=== PATIENT | female | born 1960 | race Caucasian/White ===

== ENCOUNTER 2020-02-24 10:22 | Emergency (ER) | payer OTHER ==
[~2020-02-24] VITALS: Ht 172.7 cm; Wt 90.7 kg
[2020-02-24] MEDS ORDERED: ATACAND HCT 321 EAC1 (10:33)
== END 2020-02-24 12:27 | disposition home or self-care (01) ==
LOC: ER 10:22
DX: H57.12 Ocular pain, left eye (principal)

== ENCOUNTER 2023-04-08 08:56 | Outpatient (CLI) | payer OTHER ==
[~2023-04-08 08:56] MED LIST: ATACAND HCT 321 EAC1
[2023-04-08 09:49] LABS: HEMATOCRIT 28.7 % (36.0-45.00); MEAN CELL VOLUME 73.4 fL (80.00-100.00); MEAN CORPUSCULAR HGB CONC 31.9 g/dl (32.0-36.0); PLATELET COUNT 262 K/uL (150-450); RED BLOOD COUNT 3.92 M/uL (4.00-6.00)
[2023-04-08 09:51] LABS: MEAN CORPUSCULAR HEMOGLOBIN 23.4 pg (27.00-32.0); RED CELL DISTRIBUTION WIDTH 17.1 % (11.5-14.5)
[2023-04-08 09:52] LABS: HEMOGLOBIN 9.2 g/dL (12.0-15.00)
[2023-04-08] MEDS ORDERED: NORVASC2.5 MG PO (13:52)
[2023-04-08] MEDS ORDERED: MILLIPRED5 MG PO (13:52)
[2023-04-08] MEDS ORDERED: METFORMIN HCL500 MG (13:53)
[2023-04-08] MEDS ORDERED: TREXALL5 MG (13:53)
== END 2023-04-08 08:58 | disposition home or self-care (01) ==
LOC: LAB 08:56
PROVIDERS: ATTEND Internal Medicine Pulmonary Disease
DX: D64.9 Anemia, unspecified (principal)

== ENCOUNTER 2023-04-14 07:14 | Inpatient (IN) | payer OTHER ==
[~2023-04-14] VITALS: Ht 172.7 cm; Wt 87.5 kg
[~2023-04-14 07:14] MED LIST changes: +METFORMIN HCL500 MG; +MILLIPRED5 MG PO; +NORVASC2.5 MG PO; +TREXALL5 MG
[2023-04-14] MEDS ORDERED: INSULIN LISPRO 1,000 UNIT/10 ML UNITS SUBCUTANEO PRN (07:45)
[2023-04-14] MEDS ORDERED: RINGERS SOLUTION,LACTATED 1,000 ML IV SCH (07:45)
[2023-04-14] MEDS ORDERED: FUROsemide 20 MG/2 ML VIAL IV SCH (07:45)
[2023-04-14] MEDS ORDERED: DEXTROSE 50 % IN WATER 0.5 G/ML DISP.SYRIN IV PRN (07:45)
[2023-04-14] MEDS ORDERED: FAMOTIDINE/PF 20 MG in 0.9 % SODIUM CHLORIDE 8 ML IV PUSH SCH (09:00)
[2023-04-14] MEDS ORDERED: Cyanocobalamin/Mecobalamin 1 TAB.SL SL SCH (09:00)
[2023-04-14] MEDS ORDERED: CANDESARTAN CILEXETIL 32 MG TABLET PO SCH (09:00)
[2023-04-14] MEDS ORDERED: HYDROCHLOROTHIAZIDE 12.5 MG CAPSULE PO SCH (09:00)
[2023-04-14] MEDS ORDERED: AMLODIPINE BESYLATE 2.5 MG TABLET PO SCH ×2 (09:00→21:00)
[2023-04-14] MEDS ORDERED: PREDNISONE 5 MG TABLET PO SCH (09:00)
[2023-04-14] MEDS ORDERED: SOD FERRIC GLUC COMPLX/SUCROSE 62.5 MG in 0.9 % SODIUM CHLORIDE 50 ML IV SCH (09:00)
[2023-04-15 02:46] LABS: HEMATOCRIT 36.1 % (36.0-45.00); MEAN CELL VOLUME 78.4 fL (80.00-100.00); MEAN CORPUSCULAR HGB CONC 33.1 g/dl (32.0-36.0); PLATELET COUNT 223 K/uL (150-450); RED BLOOD COUNT 4.61 M/uL (4.00-6.00); RED CELL DISTRIBUTION WIDTH 20.6 % (11.5-14.5)
[2023-04-15] MEDS ORDERED: FAMOTIDINE/PF 20 MG/2 ML VIAL ONE (15:35)
[2023-04-15] MEDS ORDERED: POLYETHYLENE GLYCOL 3350 17 GM BLIST.PACK PO SCH (16:00)
[2023-04-15] MEDS ORDERED: BISACODYL 10 MG/SUPP.RECT SUPP.RECT RECTAL SCH (21:00)
[2023-04-16] MEDS ORDERED: HYDROCORTISONE SODIUM SUCC/PF 100 MG VIAL IV ONE (06:00)
[2023-04-16] MEDS ORDERED: HYDROCORTISONE SODIUM SUCC/PF 100 MG VIAL ONE (13:14)
[2023-04-16] MEDS ORDERED: ENALAPRILAT DIHYDRATE 1.25 MG/ML VIAL IV PRN (21:00)
[2023-04-16] MEDS ORDERED: BUPIVACAINE HCL 30 ML VIAL IJ ONE (21:15)
[2023-04-16] MEDS ORDERED: METRONIDAZOLE/SODIUM CHLORIDE 500 MG/100 ML PIGGYBACK IV ONE (21:15)
[2023-04-16] MEDS ORDERED: LIDOCAINE HCL 1%/Epi 20ML VIAL IJ ONE (21:15)
[2023-04-16] MEDS ORDERED: RINGERS SOLUTION,LACTATED 1,000 ML IV SCH (21:30)
[2023-04-16] MEDS ORDERED: ONDANSETRON HCL 2 MG/ML VIAL IV PRN (21:30)
[2023-04-16] MEDS ORDERED: OxyCODONE HCL 5 MG TABLET (ROXICODONE) PO PRN (21:30)
[2023-04-16] MEDS ORDERED: MORPHINE SULFATE 4 MG/ML CARTRIDGE IV PRN (21:30)
[2023-04-16 23:17] LABS: HEMATOCRIT 41.5 % (36.0-45.00); HEMOGLOBIN 13.4 g/dL (12.0-15.00); MEAN CELL VOLUME 79.7 fL (80.00-100.00); MEAN CORPUSCULAR HEMOGLOBIN 25.8 pg (27.00-32.0); MEAN CORPUSCULAR HGB CONC 32.4 g/dl (32.0-36.0); PLATELET COUNT 280 K/uL (150-450); RED CELL DISTRIBUTION WIDTH 20.9 % (11.5-14.5)
[2023-04-17] MEDS ORDERED: METOCLOPRAMIDE HCL 5 MG/ML VIAL IV SCH (01:00)
[2023-04-17] MEDS ORDERED: GABAPENTIN 300 MG CAPSULE PO SCH (01:00)
[2023-04-17] MEDS ORDERED: ACETAMINOPHEN 500 MG GEL..CAP PO SCH (02:00)
[2023-04-17] MEDS ORDERED: CELECOXIB 200 MG CAPSULE PO SCH (05:00)
[2023-04-17 08:03] LABS: HEMATOCRIT 38.5 % (36.0-45.00); HEMOGLOBIN 12.6 g/dL (12.0-15.00); MEAN CELL VOLUME 78.1 fL (80.00-100.00); MEAN CORPUSCULAR HEMOGLOBIN 25.6 pg (27.00-32.0); MEAN CORPUSCULAR HGB CONC 32.8 g/dl (32.0-36.0); PLATELET COUNT 222 K/uL (150-450); RED BLOOD COUNT 4.93 M/uL (4.00-6.00); RED CELL DISTRIBUTION WIDTH 21.2 % (11.5-14.5)
[2023-04-17 08:32] LABS: ALBUMIN 3.2 gm/dL (3.4-5.0); CALCIUM 9.2 mg/dL (8.5-10.1); CREATININE SERUM 0.68 mg/dL (0.55-1.02); GFR 87.39; PHOSPHOROUS 3.3 mg/dL (2.5-4.9); POTASSIUM 4.22 mEq/L (3.5-5.1)
[2023-04-17] MEDS ORDERED: LACTOBACILLUS ACIDOPHILUS 1 CAP CAP PO SCH (09:00)
[2023-04-17] MEDS ORDERED: HYOSCYAMINE SULFATE 0.125 MG TAB.SUBL SL SCH (09:00)
[2023-04-17] MEDS ORDERED: LACTULOSE 20 G/30 ML BLIST.PACK PO SCH (09:00)
[2023-04-17] MEDS ORDERED: FAMOTIDINE/PF 20 MG/2 ML VIAL IV PUSH SCH (09:00)
[2023-04-17] MEDS ORDERED: SIMETHICONE 125 MG CAPSULE PO SCH (09:00)
[2023-04-17] MEDS ORDERED: HYDROCORTISONE SODIUM SUCC/PF 100 MG VIAL IV SCH ×2 (13:00)
[2023-04-17] MEDS ORDERED: LEVALBUTEROL HCL 0.63 MG/3 ML SOLUTION IH SCH ×2 (13:00)
[2023-04-17] MEDS ORDERED: POLYETHYLENE GLYCOL 3350 17 GM BLIST.PACK PO SCH (17:00)
[2023-04-17] MEDS ORDERED: ENOXAPARIN SODIUM 40 MG/0.4 ML SYRINGE SUBCUTANEO SCH (17:00)
[2023-04-18 05:26] LABS: HEMATOCRIT 33.5 % (36.0-45.00); MEAN CELL VOLUME 78.7 fL (80.00-100.00); MEAN CORPUSCULAR HEMOGLOBIN 25.8 pg (27.00-32.0); MEAN CORPUSCULAR HGB CONC 32.8 g/dl (32.0-36.0); PLATELET COUNT 189 K/uL (150-450); RED BLOOD COUNT 4.26 M/uL (4.00-6.00); RED CELL DISTRIBUTION WIDTH 21.6 % (11.5-14.5)
[2023-04-18 05:40] LABS: CALCIUM 8.8 mg/dL (8.5-10.1); CREATININE SERUM 0.81 mg/dL (0.55-1.02); GFR 71.41; MAGNESIUM 2.3 mg/dL (1.8-2.4); PHOSPHOROUS 3.2 mg/dL (2.5-4.9); POTASSIUM 3.68 mEq/L (3.5-5.1)
[2023-04-18] MEDS ORDERED: ENOXAPARIN SODIUM 40 MG/0.4 ML SYRINGE SUBCUTANEO SCH (09:00)
[2023-04-18] MEDS ORDERED: HYDROCORTISONE SODIUM SUCC/PF 100 MG VIAL IV SCH (21:00)
[2023-04-19] MEDS ORDERED: PERCOCET 5-3251 EACH PO (09:30)
== END 2023-04-19 11:22 | disposition home or self-care (01) | DRG 331 ==
LOC: ER 07:14 → SURH 08:33
PROVIDERS: Colon & Rectal Surgery; ADMIT Internal Medicine Geriatric Medicine; ATTEND Internal Medicine Geriatric Medicine
PROC: 30233N1 Transfusion of Nonautologous Red Blood Cells into Peripheral Vein, Percutaneous Approach (ICD-10-PCS; 2023-04-14)
PROC: 07BB4ZZ Excision of Mesenteric Lymphatic, Percutaneous Endoscopic Approach (ICD-10-PCS; 2023-04-16)
PROC: 0DTF4ZZ Resection of Right Large Intestine, Percutaneous Endoscopic Approach (ICD-10-PCS; principal; 2023-04-16 11:15)
DX: C18.0 Malignant neoplasm of cecum (principal); D63.0 Anemia in neoplastic disease; R59.0 Localized enlarged lymph nodes; E11.9 Type 2 diabetes mellitus without complications; Z79.4 Long term (current) use of insulin; I10 Essential (primary) hypertension; M06.9 Rheumatoid arthritis, unspecified

== ENCOUNTER 2023-04-20 16:15 | Inpatient (IN) | payer OTHER ==
[~2023-04-20] VITALS: Ht 172.7 cm; Wt 0.5 kg
[~2023-04-20 16:15] MED LIST changes: +PERCOCET 5-3251 EACH PO
--- NOTE | 2023-04-20 17:01 | NUR ---
PACIENTE ALERTA Y ORIENTADA X3. SE ENCUENTRA ACOMPANADA AL MOMENTO. PACIENTE REFIERE QUE SALIO DE JAYLEN EL SARA DE RAMAN 04/19/2023 POR OPERACION DEL COLON Y QUE EL SARA DE HOY JASSO PRESENTADO DIARREAS X8 Y VOMITOS X1. SE ESTIMAN SIGNOS VITALES Y SE UBICA.
[2023-04-20] MEDS ORDERED: 0.9 % SODIUM CHLORIDE 1,000 ML IV SCH ×2 (20:00→22:45)
[2023-04-20] MEDS ORDERED: ONDANSETRON HCL 2 MG/ML VIAL IV ONE (20:00)
[2023-04-20 20:20] LABS: HEMATOCRIT 39.9 % (36.0-45.00); MEAN CELL VOLUME 80.1 fL (80.00-100.00); MEAN CORPUSCULAR HGB CONC 32.5 g/dl (32.0-36.0); PLATELET COUNT 257 K/uL (150-450); RED BLOOD COUNT 4.99 M/uL (4.00-6.00); RED CELL DISTRIBUTION WIDTH 22.1 % (11.5-14.5)
--- NOTE | 2023-04-20 20:26 | NUR ---
SE EDUCA A PTE SOBRE PROCEDIMIENTO MEDICO A SEGUIR, PTE REFIERE ENTENDER, SE REALIZA CANALIZACION BAJO MEDIDAS ASEPTICAS, COLECCION DE MUESTRAS Y ADMINISTRACION DE MEDICAMENTOS BLANE ORDEN MEDICA. PTE EN ESPERA DE CT.
[2023-04-20 20:38] LABS: ALBUMIN 3.3 gm/dL (3.4-5.0); BILIRUBIN TOTAL 0.68 mg/dL (0.3-1.2); CALCIUM 10.3 mg/dL (8.5-10.1); CREATININE SERUM 0.84 mg/dL (0.55-1.02); GFR 68.48; GLOBULINA 4.8 G/DL (2.4-3.5); POTASSIUM 3.48 mEq/L (3.5-5.1); TOTAL PROTEIN 8.1 gm/dL (6.4-8.2)
[2023-04-20] MEDS ORDERED: FAMOTIDINE/PF 20 MG in 0.9 % SODIUM CHLORIDE 8 ML IV PUSH SCH (22:47)
[2023-04-20] MEDS ORDERED: INSULIN LISPRO 1,000 UNIT/10 ML UNITS SUBCUTANEO PRN (23:00)
[2023-04-20] MEDS ORDERED: ENALAPRILAT DIHYDRATE 1.25 MG/ML VIAL IV PRN (23:00)
[2023-04-20] MEDS ORDERED: ACETAMINOPHEN 500 MG GEL..CAP PO PRN (23:00)
[2023-04-20] MEDS ORDERED: DEXTROSE 50 % IN WATER 0.5 G/ML DISP.SYRIN IV PRN (23:00)
[2023-04-20] MEDS ORDERED: ONDANSETRON HCL 4 MG in 0.9 % SODIUM CHLORIDE 50 ML IV PRN (23:00)
[2023-04-20] MEDS ORDERED: MEPERIDINE HCL/PF 25 MG/ML VIAL IM PRN (23:00)
[2023-04-21] MEDS ORDERED: PIPERACILLIN/TAZOBACTAM SODIUM 3.375 GM in DEXTROSE 5 % IN WATER 100 ML IV SCH
[2023-04-21 02:31] LABS: INR 2.03; PARTIAL THROMBOPLASTIN TIME 34.5 SECONDS (22.0-34.0)
[2023-04-21 02:33] LABS: PROTHROMBIN TIME 20.2 SECONDS (9.0-11.5)
[2023-04-21] MEDS ORDERED: PHENOL 177 ML BOTTLE MM SCH (13:00)
[2023-04-21] MEDS ORDERED: FAMOTIDINE/PF 20 MG/2 ML VIAL ONE (16:05)
[2023-04-21 20:38] LABS: CALCIUM 8.8 mg/dL (8.5-10.1); CHOL HDL RATIO 3.5 (0-5.0); CREATININE SERUM 0.72 mg/dL (0.55-1.02); GFR 81.81; POTASSIUM 3.53 mEq/L (3.5-5.1)
[2023-04-21] MEDS ORDERED: FAMOTIDINE/PF 20 MG in 0.9 % SODIUM CHLORIDE 8 ML IV PUSH SCH (21:00)
[2023-04-21 21:24] LABS: URINE APPEARANCE Clear; URINE BILIRRUBIN Negative (NEGATIVE); URINE BLOOD Negative; URINE COLOR Yellow; URINE GLUCOSE Negative (NEGATIVE); URINE LEUKOCYTE Negative; URINE NITRATE Negative; URINE PROTEIN Trace (NEGATIVE); URINE UROBILINOGEN 0.2 E.U./dl
[2023-04-21 21:28] LABS: URINE BACTERIA 6.2 uL (0.0-1933); URINE EPITHELIAL CELLS 4.9 uL (0.0-38.8); URINE RBC 3.5 uL (0.0-20.8); URINE WBC 5.5 uL (0.0-23.2)
[2023-04-22 06:47] LABS: ob POSITIVE (NEGATIVE)
[2023-04-22] MEDS ORDERED: DEXTROSE 50 % IN WATER 0.5 G/ML DISP.SYRIN IV PRN (10:45)
[2023-04-22] MEDS ORDERED: INSULIN LISPRO 1,000 UNIT/10 ML UNITS SUBCUTANEO PRN (10:45)
[2023-04-22] MEDS ORDERED: ENALAPRILAT DIHYDRATE 1.25 MG/ML VIAL IV PRN (10:45)
[2023-04-22] MEDS ORDERED: HYDROCORTISONE SODIUM SUCC/PF 100 MG VIAL IV STA (10:49)
[2023-04-22 13:43] LABS: FECAL LEUKOCYTES POSITIVE (NEGATIVE)
[2023-04-22] MEDS ORDERED: FAMOTIDINE/PF 20 MG/2 ML VIAL ONE (15:52)
[2023-04-22] MEDS ORDERED: AA 4.25%/CAL/LYTES/DEXT 5% 1,000 ML PERIFERAL SCH (17:00)
[2023-04-22] MEDS ORDERED: HYDROCORTISONE SODIUM SUCC/PF 100 MG VIAL IV SCH (21:00)
[2023-04-23 06:58] LABS: HEMATOCRIT 35.2 % (36.0-45.00); HEMOGLOBIN 11.6 g/dL (12.0-15.00); MEAN CELL VOLUME 78.1 fL (80.00-100.00); MEAN CORPUSCULAR HEMOGLOBIN 25.9 pg (27.00-32.0); MEAN CORPUSCULAR HGB CONC 33.1 g/dl (32.0-36.0); PLATELET COUNT 210 K/uL (150-450); RED BLOOD COUNT 4.51 M/uL (4.00-6.00); RED CELL DISTRIBUTION WIDTH 21.3 % (11.5-14.5)
[2023-04-23 07:21] LABS: INR 1.12; PARTIAL THROMBOPLASTIN TIME 20.4 SECONDS (22.0-34.0); PROTHROMBIN TIME 11.7 SECONDS (9.0-11.5)
[2023-04-23 13:24] LABS: CALCIUM 8.6 mg/dL (8.5-10.1); CREATININE SERUM 0.57 mg/dL (0.55-1.02); GFR 107.13; MAGNESIUM 2.2 mg/dL (1.8-2.4); PHOSPHOROUS 2.2 mg/dL (2.5-4.9); POTASSIUM 3.22 mEq/L (3.5-5.1)
[2023-04-23] MEDS ORDERED: METOCLOPRAMIDE HCL 5 MG/ML VIAL IV SCH (14:44)
[2023-04-23] MEDS ORDERED: FAMOTIDINE/PF 20 MG/2 ML VIAL ONE (16:24)
[2023-04-24] MEDS ORDERED: HYDROCORTISONE SODIUM SUCC/PF 100 MG VIAL IV SCH (09:00)
[2023-04-24] MEDS ORDERED: FAMOTIDINE/PF 20 MG/2 ML VIAL ONE (15:54)
[2023-04-24] MEDS ORDERED: AMLODIPINE BESYLATE 2.5 MG TABLET PO SCH (21:00)
[2023-04-25 05:48] LABS: HEMOGLOBIN 10.1 g/dL (12.0-15.00); MEAN CORPUSCULAR HEMOGLOBIN 26.2 pg (27.00-32.0); MEAN CORPUSCULAR HGB CONC 33.6 g/dl (32.0-36.0); PLATELET COUNT 192 K/uL (150-450); RED BLOOD COUNT 3.84 M/uL (4.00-6.00); RED CELL DISTRIBUTION WIDTH 21.1 % (11.5-14.5)
[2023-04-25 06:00] LABS: CALCIUM 8.3 mg/dL (8.5-10.1); CREATININE SERUM 0.62 mg/dL (0.55-1.02); GFR 97.22; MAGNESIUM 2.1 mg/dL (1.8-2.4); PHOSPHOROUS 2.8 mg/dL (2.5-4.9)
[2023-04-25 06:32] LABS: POTASSIUM 2.91 mEq/L (3.5-5.1)
[2023-04-25] MEDS ORDERED: POTASSIUM CHLORIDE 20MEQ/100ML H2O PB IV ONE (07:45)
[2023-04-25] MEDS ORDERED: PREDNISONE 5 MG TABLET PO SCH (09:00)
[2023-04-26] MEDS ORDERED: CANDESARTAN CILEXETIL 32 MG TABLET PO SCH (09:00)
[2023-04-27 09:41] LABS: HEMATOCRIT 35.6 % (36.0-45.00); HEMOGLOBIN 11.8 g/dL (12.0-15.00); MEAN CORPUSCULAR HEMOGLOBIN 26.2 pg (27.00-32.0); MEAN CORPUSCULAR HGB CONC 33.2 g/dl (32.0-36.0); PLATELET COUNT 262 K/uL (150-450); RED BLOOD COUNT 4.51 M/uL (4.00-6.00); RED CELL DISTRIBUTION WIDTH 21.8 % (11.5-14.5)
[2023-04-27 10:10] LABS: CALCIUM 9.3 mg/dL (8.5-10.1); CREATININE SERUM 0.82 mg/dL (0.55-1.02); GFR 70.41; MAGNESIUM 2.3 mg/dL (1.8-2.4); PHOSPHOROUS 2.9 mg/dL (2.5-4.9); POTASSIUM 3.47 mEq/L (3.5-5.1)
[2023-04-27 10:19] LABS: C-REACTIVE PROTEIN 2.38 MG/DL (0.00-0.29)
[2023-04-27 10:25] LABS: ERYTHROCYTE SEDIMENTATION RATE 59 mm/hr
[2023-04-27] MEDS ORDERED: POTASSIUM CHLORIDE 8 MEQ TABLET PO SCH (13:00)
[2023-04-28] MEDS ORDERED: PEPCID AC20 MG PO (11:17)
[2023-04-28] MEDS ORDERED: INTESTINEX680 M1 PO (11:17)
== END 2023-04-28 13:09 | disposition home or self-care (01) | DRG 394 ==
LOC: ER 16:16 → SURG 23:03 → SURH 04-24 21:48
PROVIDERS: Emergency Medicine; General Practice; Internal Medicine; Internal Medicine Geriatric Medicine; ADMIT Colon & Rectal Surgery; ATTEND Colon & Rectal Surgery
PROC: 0D9670Z Drainage of Stomach with Drainage Device, Via Natural or Artificial Opening (ICD-10-PCS; principal; 2023-04-20)
PROC: BW21ZZZ Computerized Tomography (CT Scan) of Abdomen and Pelvis (ICD-10-PCS; 2023-04-20)
PROC: 02HV33Z Insertion of Infusion Device into Superior Vena Cava, Percutaneous Approach (ICD-10-PCS; 2023-04-22)
PROC: 3E0436Z Introduction of Nutritional Substance into Central Vein, Percutaneous Approach (ICD-10-PCS; 2023-04-22)
PROC: 0DP0XUZ Removal of Feeding Device from Upper Intestinal Tract, External Approach (ICD-10-PCS; 2023-04-23)
DX: K91.89 Other postprocedural complications and disorders of digestive system (principal); K56.7 Ileus, unspecified; K91.0 Vomiting following gastrointestinal surgery; E87.6 Hypokalemia; E83.39 Other disorders of phosphorus metabolism; D64.89 Other specified anemias

== ENCOUNTER 2023-05-05 01:09 | Emergency (ER) | payer OTHER ==
[~2023-05-05] VITALS: Ht 172.7 cm; Wt 86.2 kg
[~2023-05-05 01:09] MED LIST changes: +INTESTINEX680 M1 PO; +PEPCID AC20 MG PO
[2023-05-05] MEDS ORDERED: RINGERS SOLUTION,LACTATED 1,000 ML IV STA (02:08)
[2023-05-05] MEDS ORDERED: MORPHINE SULFATE 4 MG/ML CARTRIDGE IV STA (02:10)
[2023-05-05] MEDS ORDERED: ONDANSETRON HCL 2 MG/ML VIAL IV STA (02:10)
[2023-05-05] MEDS ORDERED: HYOSCYAMINE SULFATE 0.125 MG TAB.SUBL SL ONE (02:15)
[2023-05-05] MEDS ORDERED: 0.9 % SODIUM CHLORIDE 1,000 ML IV SCH (02:45)
[2023-05-05 02:56] LABS: HEMATOCRIT 35.7 % (36.0-45.00); HEMOGLOBIN 11.4 g/dL (12.0-15.00); MEAN CELL VOLUME 78.7 fL (80.00-100.00); MEAN CORPUSCULAR HEMOGLOBIN 25.3 pg (27.00-32.0); MEAN CORPUSCULAR HGB CONC 32.1 g/dl (32.0-36.0); PLATELET COUNT 314 K/uL (150-450); RED BLOOD COUNT 4.53 M/uL (4.00-6.00); RED CELL DISTRIBUTION WIDTH 22.5 % (11.5-14.5)
[2023-05-05 03:06] LABS: INR 1.08; PROTHROMBIN TIME 11.3 SECONDS (9.0-11.5)
[2023-05-05 03:11] LABS: ALBUMIN 3.5 gm/dL (3.4-5.0); BILIRUBIN TOTAL 0.4 mg/dL (0.3-1.2); CALCIUM 9.7 mg/dL (8.5-10.1); CREATININE SERUM 0.81 mg/dL (0.55-1.02); GFR 71.41; GLOBULINA 4.1 G/DL (2.4-3.5); POTASSIUM 3.67 mEq/L (3.5-5.1); TOTAL PROTEIN 7.6 gm/dL (6.4-8.2)
[2023-05-05 07:59] LABS: PH,URINE 5.5 (5.0-8.0); URINE APPEARANCE Clear; URINE BILIRRUBIN Negative (NEGATIVE); URINE BLOOD Negative; URINE COLOR Yellow; URINE GLUCOSE Negative (NEGATIVE); URINE LEUKOCYTE Trace; URINE NITRATE Negative; URINE PROTEIN Negative (NEGATIVE); URINE UROBILINOGEN 0.2 E.U./dl
[2023-05-05 08:01] LABS: URINE BACTERIA 35.2 uL (0.0-1933); URINE WBC 30.4 uL (0.0-23.2)
[2023-05-05 08:14] LABS: URINE RBC 0.7 uL (0.0-20.8)
== END 2023-05-05 10:53 | disposition home or self-care (01) ==
LOC: ER 01:10
DX: R10.12 Left upper quadrant pain (principal)

== ENCOUNTER 2023-05-13 08:37 | Outpatient (CLI) | payer OTHER | END 2023-05-13 08:44 | disposition home or self-care (01) | LOC: RAD 08:37 | PROVIDERS: ATTEND Colon & Rectal Surgery | DX: D12.0 Benign neoplasm of cecum (principal); D12.2 Benign neoplasm of ascending colon; D18.00 Hemangioma unspecified site ==

== ENCOUNTER 2023-05-15 05:55 | Day surgery (SDC) | payer OTHER ==
[2023-05-15] MEDS ORDERED: CEFAZOLIN SODIUM 1,000 MG VIAL ONE (08:39)
[2023-05-15] MEDS ORDERED: BUPIVACAINE HCL/PF 0.5% 30ML ML ONE (09:11)
[2023-05-15] MEDS ORDERED: LIDOCAINE HCL/EPINEPHRINE 10MG/ML 1% 50ML IJ ONE ×2 (09:11→10:30)
[2023-05-15] MEDS ORDERED: HEPARIN SODIUM,PORCINE 500 UNITS/5 ML VIAL IV ONE ×2 (09:11→10:30)
[2023-05-15] MEDS ORDERED: CEFAZOLIN SODIUM 1,000 MG VIAL IV ONE (10:30)
[2023-05-15] MEDS ORDERED: BUPIVACAINE HCL 30 ML VIAL IJ ONE (10:30)
== END 2023-05-15 12:55 | disposition home or self-care (01) ==
LOC: CIR.AMB 05:55
PROVIDERS: ATTEND Colon & Rectal Surgery
DX: C18.0 Malignant neoplasm of cecum (principal)

== ENCOUNTER 2023-05-19 12:14 | Emergency (ER) | payer OTHER ==
[~2023-05-19] VITALS: Ht 172.7 cm; Wt 86.2 kg
[2023-05-19 16:07] LABS: HEMATOCRIT 38.4 % (36.0-45.00); HEMOGLOBIN 12.7 g/dL (12.0-15.00); MEAN CELL VOLUME 79.8 fL (80.00-100.00); MEAN CORPUSCULAR HEMOGLOBIN 26.4 pg (27.00-32.0); MEAN CORPUSCULAR HGB CONC 33.1 g/dl (32.0-36.0); PLATELET COUNT 181 K/uL (150-450); RED BLOOD COUNT 4.81 M/uL (4.00-6.00); RED CELL DISTRIBUTION WIDTH 22.3 % (11.5-14.5)
[2023-05-19 16:13] LABS: PH,URINE 5.5 (5.0-8.0); URINE BILIRRUBIN Negative (NEGATIVE); URINE BLOOD Negative; URINE COLOR Yellow; URINE GLUCOSE Negative (NEGATIVE); URINE LEUKOCYTE Negative; URINE NITRATE Negative; URINE PROTEIN Negative (NEGATIVE); URINE UROBILINOGEN 0.2 E.U./dl
[2023-05-19 16:17] LABS: URINE BACTERIA 17.6 uL (0.0-1933)
[2023-05-19 16:21] LABS: URINE APPEARANCE CLEAR
[2023-05-19 17:21] LABS: ALBUMIN 3.6 gm/dL (3.4-5.0); BILIRUBIN TOTAL 0.57 mg/dL (0.3-1.2); CALCIUM 10.1 mg/dL (8.5-10.1); CREATININE SERUM 0.86 mg/dL (0.55-1.02); GFR 66.64; GLOBULINA 4.1 G/DL (2.4-3.5); POTASSIUM 3.94 mEq/L (3.5-5.1); TOTAL PROTEIN 7.7 gm/dL (6.4-8.2)
== END 2023-05-19 20:03 | disposition home or self-care (01) ==
LOC: ER 12:15
PROVIDERS: General Practice
DX: R19.7 Diarrhea, unspecified (principal); E11.9 Type 2 diabetes mellitus without complications; Z79.84 Long term (current) use of oral hypoglycemic drugs; I10 Essential (primary) hypertension

== ENCOUNTER 2023-05-22 11:51 | Outpatient (CLI) | payer OTHER | END 2023-05-22 11:58 | disposition home or self-care (01) | LOC: SONOGRAMA 11:51 | PROVIDERS: ATTEND Internal Medicine | DX: K81.0 Acute cholecystitis (principal); R10.9 Unspecified abdominal pain ==

== ENCOUNTER 2023-05-23 06:14 | Inpatient (IN) | payer OTHER ==
[~2023-05-23] VITALS: Ht 172.7 cm; Wt 86.2 kg
[2023-05-23] MEDS ORDERED: HYOSCYAMINE SULFATE 0.125 MG TAB.SUBL SL STA (07:06)
[2023-05-23] MEDS ORDERED: LACTOBACILLUS ACIDOPHILUS 1 CAP CAP PO STA (07:10)
[2023-05-23] MEDS ORDERED: POTASSIUM CHLORIDE/NACL 0.9% 1,000 ML IV ONE (07:15)
[2023-05-23 07:51] LABS: HEMATOCRIT 37.9 % (36.0-45.00); HEMOGLOBIN 12.7 g/dL (12.0-15.00); MEAN CELL VOLUME 79.8 fL (80.00-100.00); MEAN CORPUSCULAR HEMOGLOBIN 26.8 pg (27.00-32.0); MEAN CORPUSCULAR HGB CONC 33.6 g/dl (32.0-36.0); PLATELET COUNT 202 K/uL (150-450); RED BLOOD COUNT 4.75 M/uL (4.00-6.00); RED CELL DISTRIBUTION WIDTH 21.8 % (11.5-14.5)
[2023-05-23 08:27] LABS: ALBUMIN 3.8 gm/dL (3.4-5.0); BILIRUBIN TOTAL 0.73 mg/dL (0.3-1.2); CALCIUM 9.7 mg/dL (8.5-10.1); CREATININE SERUM 0.86 mg/dL (0.55-1.02); GFR 66.64; GLOBULINA 3.8 G/DL (2.4-3.5); POTASSIUM 3.78 mEq/L (3.5-5.1); TOTAL PROTEIN 7.6 gm/dL (6.4-8.2)
[2023-05-23 08:30] LABS: PH,URINE 5.5 (5.0-8.0); URINE APPEARANCE Clear; URINE BILIRRUBIN Negative (NEGATIVE); URINE BLOOD Negative; URINE COLOR Yellow; URINE GLUCOSE Negative (NEGATIVE); URINE LEUKOCYTE Negative; URINE NITRATE Negative; URINE PROTEIN Negative (NEGATIVE); URINE UROBILINOGEN 0.2 E.U./dl
[2023-05-23 08:33] LABS: URINE BACTERIA 12.6 uL (0.0-1933); URINE EPITHELIAL CELLS 13.7 uL (0.0-38.8); URINE WBC 13.1 uL (0.0-23.2)
[2023-05-23] MEDS ORDERED: 0.9 % SODIUM CHLORIDE 1,000 ML IV SCH (14:30)
[2023-05-23] MEDS ORDERED: HYDROCORTISONE SODIUM SUCC/PF 100 MG VIAL IV STA (14:40)
[2023-05-23] MEDS ORDERED: FAMOTIDINE/PF 20 MG/10 ML SYRINGE IV SCH (14:42)
[2023-05-23] MEDS ORDERED: METRONIDAZOLE/SODIUM CHLORIDE 100 ML IV SCH (14:42)
[2023-05-23] MEDS ORDERED: ENALAPRILAT DIHYDRATE 1.25 MG/ML VIAL IV PRN (14:45)
[2023-05-23] MEDS ORDERED: AA 4.25%/CAL/LYTES/DEXT 5% 1,000 ML PERIFERAL SCH ×2 (14:45→19:00)
[2023-05-23] MEDS ORDERED: LACTOBACILLUS ACIDOPHILUS 1 CAP CAP PO SCH (17:00)
[2023-05-23] MEDS ORDERED: CIPROFLOXACIN IN 5 % DEXTROSE 200 ML IV SCH (21:00)
[2023-05-24] MEDS ORDERED: FAMOTIDINE/PF 20 MG/2 ML VIAL IV SCH (05:00)
[2023-05-24 06:16] LABS: HEMATOCRIT 34.2 % (36.0-45.00); HEMOGLOBIN 11.3 g/dL (12.0-15.00); MEAN CELL VOLUME 81.3 fL (80.00-100.00); MEAN CORPUSCULAR HEMOGLOBIN 26.8 pg (27.00-32.0); PLATELET COUNT 159 K/uL (150-450); RED BLOOD COUNT 4.21 M/uL (4.00-6.00); RED CELL DISTRIBUTION WIDTH 21.3 % (11.5-14.5)
[2023-05-24 07:50] LABS: BILIRUBIN TOTAL 0.49 mg/dL (0.3-1.2); CALCIUM 8.8 mg/dL (8.5-10.1); CREATININE SERUM 0.58 mg/dL (0.55-1.02); MAGNESIUM 2.2 mg/dL (1.8-2.4); PHOSPHOROUS 3.2 mg/dL (2.5-4.9); POTASSIUM 3.81 mEq/L (3.5-5.1); TSH 0.421 uIU/mL (0.358-3.74)
[2023-05-24 07:53] LABS: C-REACTIVE PROTEIN 0.99 MG/DL (0.00-0.29)
[2023-05-24] MEDS ORDERED: HYDROCORTISONE SODIUM SUCC/PF 100 MG VIAL IV SCH (09:00)
[2023-05-24] MEDS ORDERED: VANCOMYCIN HCL 125 MG/7.5 ML BLIST.PACK PO SCH (18:00)
[2023-05-27 07:02] LABS: HEMATOCRIT 29.9 % (36.0-45.00); HEMOGLOBIN 10.3 g/dL (12.0-15.00); MEAN CORPUSCULAR HEMOGLOBIN 27.3 pg (27.00-32.0); MEAN CORPUSCULAR HGB CONC 34.5 g/dl (32.0-36.0); PLATELET COUNT 155 K/uL (150-450); RED BLOOD COUNT 3.78 M/uL (4.00-6.00); RED CELL DISTRIBUTION WIDTH 21.4 % (11.5-14.5)
[2023-05-27 07:23] LABS: INR 1.2; PARTIAL THROMBOPLASTIN TIME 27.9 SECONDS (22.0-34.0); PROTHROMBIN TIME 12.4 SECONDS (9.0-11.5)
[2023-05-27 07:39] LABS: ALBUMIN 3.1 gm/dL (3.4-5.0); BILIRUBIN TOTAL 0.28 mg/dL (0.3-1.2); CALCIUM 9.1 mg/dL (8.5-10.1); CREATININE SERUM 0.63 mg/dL (0.55-1.02); GFR 95.44; GLOBULINA 2.7 G/DL (2.4-3.5); POTASSIUM 3.14 mEq/L (3.5-5.1); TOTAL PROTEIN 5.8 gm/dL (6.4-8.2)
[2023-05-27 07:44] LABS: ALBUMIN 3.1 gm/dL (3.4-5.0); BILIRUBIN TOTAL 0.28 mg/dL (0.3-1.2); BILIRUBIN,CONJUGATED 0.11 mg/dL (0.0-0.2); BILIRUBIN,UNCONJUGATED 0.17 mg/dL (0.0-0.6); CHOL HDL RATIO 2.7 (0-5.0); MAGNESIUM 2.2 mg/dL (1.8-2.4); TOTAL PROTEIN 5.9 gm/dL (6.4-8.2)
[2023-05-27 07:45] LABS: C-REACTIVE PROTEIN 0.45 MG/DL (0.00-0.29)
[2023-05-27 09:37] LABS: UREA CLEARANCE 38.9 ML/MIN
[2023-05-27] MEDS ORDERED: PREDNISONE 5 MG TABLET PO SCH (11:35)
[2023-05-27] MEDS ORDERED: POTASSIUM CHLORIDE 20MEQ/100ML H2O PB IV ONE (11:45)
[2023-05-27] MEDS ORDERED: CANDESARTAN CILEXETIL 16 MG TABLET PO STA (13:29)
[2023-05-27] MEDS ORDERED: ENOXAPARIN SODIUM 40 MG/0.4 ML SYRINGE SUBCUTANEO SCH (13:47)
[2023-05-28] MEDS ORDERED: CANDESARTAN CILEXETIL 32 MG TABLET PO SCH (09:00)
[2023-05-28] MEDS ORDERED: VANCOMYCIN HCL125 MG PO (10:41)
[2023-05-28] MEDS ORDERED: MILLIPRED5 MG PO (10:58)
[2023-05-28] MEDS ORDERED: PEPCID AC20 MG PO (10:58)
[2023-05-28] MEDS ORDERED: ATACAND HCT 321 EAC1 PO (10:58)
[2023-05-28] MEDS ORDERED: INTESTINEX680 M1 PO (10:58)
== END 2023-05-28 13:59 | disposition home or self-care (01) | DRG 372 ==
LOC: ER 06:14 → MEDI 15:32 → MEDJ 05-24 15:59
PROVIDERS: General Practice; Specialist; ADMIT Internal Medicine Geriatric Medicine; ATTEND Internal Medicine Geriatric Medicine
PROC: BW21YZZ Computerized Tomography (CT Scan) of Abdomen and Pelvis using Other Contrast (ICD-10-PCS; principal; 2023-05-23)
PROC: 02HV33Z Insertion of Infusion Device into Superior Vena Cava, Percutaneous Approach (ICD-10-PCS; 2023-05-24)
PROC: 3E0436Z Introduction of Nutritional Substance into Central Vein, Percutaneous Approach (ICD-10-PCS; 2023-05-24)
PROC: 8E0ZXY6 Isolation (ICD-10-PCS; 2023-05-24)
DX: A04.72 Enterocolitis due to Clostridium difficile, not specified as recurrent (principal); C18.9 Malignant neoplasm of colon, unspecified; I10 Essential (primary) hypertension; E11.9 Type 2 diabetes mellitus without complications; Z79.84 Long term (current) use of oral hypoglycemic drugs; R00.0 Tachycardia, unspecified